=== PATIENT | female | born 1990 | race African-American/Black ===

== ENCOUNTER 2019-04-20 03:12 | Inpatient (IN) | payer OTHER ==
[2019-04-20] MEDS ORDERED: DEXTROSE 5%-LACTATED RINGERS 1,000 ML IV SCH ×2 (04:00→08:00)
[2019-04-20 04:30] LABS: BASO % 0.2 % (0-2.0); HEMATOCRIT 37.7 % (32.4-45.2); HEMOGLOBIN 12.4 GM/dL (10.7-15.3); LYMPH % 20.1 % (8-40); MCH 29.4 pg (25.7-33.7); MEAN CELL VOLUME 89.2 fl (80-96); MEAN PLT VOLUME 9.2 fl (7.5-11.1); MONO % 8.1 % (3.8-10.2); NEUT % 70.6 % (42.8-82.8); RBC 4.22 M/mm3 (3.60-5.2)
[2019-04-20 04:45] LABS: INR 0.92 (0.83-1.09); PROTHROMBIN TIME (PATIENT) 10.9 SEC (9.7-13.0)
[2019-04-20 04:47] LABS: ACTIVATED PTT 32.3 SECONDS (25.2-36.5)
[2019-04-20 04:52] VITALS: BMI 30.9
[2019-04-20 05:05] LABS: BLOOD UREA NITROGEN 6.7 mg/dL (7-18); CALCIUM 8.5 mg/dL (8.5-10.1); CREATININE 0.6 mg/dL (0.55-1.3); POTASSIUM 3.7 mmol/L (3.5-5.1)
[2019-04-20] MEDS ORDERED: FENTANYL/BUPIVACAINE/NS/PF - PCEA - 50 ML DISP.SYRIN EP ONE (06:02)
[2019-04-20] MEDS ORDERED: BUPIVACAINE HCL/PF 0.25% (2.5MG/ML) 10 ML VIAL ONE (06:04)
[2019-04-20] MEDS ORDERED: NALOXONE HCL 0.4 MG/ML VIAL IVPUSH PRN (06:08)
[2019-04-20] MEDS ORDERED: FENTANYL/BUPIVACAINE/NS/PF - PCEA - 50 ML DISP.SYRIN EP SCH (06:15)
[2019-04-20 06:41] LABS: ANISOCYTOSIS 0; HELMET CELLS 0; HOWELL-JOLLY BODIES 0; MACROCYTOSIS 0; OVALOCYTE 0; PLATELET ESTIMATE DECREASED; ROULEAU 0; SICKELED CELLS 0; TARGET CELLS 0; TEAR DROP CELLS 0; TOXIC GRANULATION 0
[2019-04-20 06:44] LABS: PLATELET COUNT 159 K/MM3 (134-434)
[2019-04-20] MEDS ORDERED: ELECTROLYTE-148 SOLN 1,000 ML IV SCH ×2 (07:30→08:00)
--- NOTE | 2019-04-20 08:04 | HP ---
Past Medical History - Admission Chief Complaint: Labor pain History of Present Illness: 28 yo @ 40 weeks gestation, EDC 04/16/19 admitted for labor pain. Upon admission she was 5cm dilated. History Source: Patient Limitations to Obtaining History: No Limitations - Past Medical History ...: 2 ...Para: 0 ...Term: 0 ...: 0 ...Spon : 0 ...Induced : 1 ...Multiple Gestation: 0 ...LMP: 07/10/19 ... Weeks Gestation by Dates: 40.4 ...EDC by Dates: 04/16/19 ...EDC by Sono: 04/26/19 Heme/Onc: Yes: Anemia - Past Surgical History Past Surgical History: Yes: None Hx Myomectomy: No Hx Transabdominal Cerclage: No - Smoking History Smoking history: Never smoked Aproximately how many cigarettes per day: 0 - Alcohol/Substance Use Hx Alcohol Use: No History of Substance Use: reports: None - Social History ADL: Independent History of Recent Travel: No Home Medications - Allergies Allergies/Adverse Reactions: Allergies Allergy/AdvReac Type Severity Reaction Status Date / Time No Known Allergies Allergy Verified 06/15/15 19:17 - Home Medications Home Medications: Ambulatory Orders NK [No Known Home Medication] 05/23/15 Commode 06/17/15 Family Disease History - Family Disease History Family History: Unremarkable Review of Systems - Review of Systems Constitutional: reports: No Symptoms Eyes: reports: No Symptoms HENT: reports: No Symptoms Neck: reports: No Symptoms Cardiovascular: reports: No Symptoms Respiratory: reports: No Symptoms Gastrointestinal: reports: No Symptoms Genitourinary: reports: No Symptoms Breasts: reports: No Symptoms Reported Musculoskeletal: reports: No Symptoms Integumentary: reports: No Symptoms Neurological: reports: No Symptoms Endocrine: reports: No Symptoms Hematology/Lymphatic: reports: No Symptoms Psychiatric: reports: No Symptoms Pain Intensity: 7 Physical Exam - Maternity Vital Signs: Vital Signs Temperature 98.6 F 04/20/19 06:00 Pulse Rate 66 04/20/19 07:45 Respiratory Rate 18 04/20/19 07:45 Blood Pressure 112/56 L 04/20/19 07:45 O2 Sat by Pulse Oximetry (%) 98 04/20/19 07:45 Constitutional: Yes: Well Nourished Eyes: Yes: Conjunctiva Clear HENT: Yes: Atraumatic Neck: Yes: Supple Cardiovascular: Yes: Regular Rate and Rhythm Lungs: Clear to auscultation - Abdominal Exam/OB Number of Fetuses: Single Presentation: Vertex - Vaginal Exam/OB Vaginal Bleediing: No - Physical Exam ...Motor Strength: WNL Psychiatric: Yes: Alert, Oriented - Labs Lab Results: CBC, BMP 04/20/19 03:55 04/20/19 03:55 Problem List - Problems (1) 40 weeks gestation of Code(s): Z3A.40 - 40 WEEKS GESTATION OF Assessment/Plan Active labor at term Admit to L&D Analgesia as needed Anticipate
[2019-04-20] MEDS ORDERED: OXYTOCIN 20 UNITS in 0.9% NS 20 UNIT/1,000 ML INFUS.BAG IV ONE (08:12)
[2019-04-20] MEDS ORDERED: LIDOCAINE HCL 1% PRESERVATIVE FREE - 30ML VIAL ONE (08:13)
[2019-04-20] MEDS ORDERED: BENZOCAINE 28 GM HEMORRHOIDAL OINTMENT TP PRN (08:54)
[2019-04-20] MEDS ORDERED: BISACODYL 10 MG SUPP.RECT RC PRN (08:54)
[2019-04-20] MEDS ORDERED: METHYLERGONOVINE MALEATE 0.2 MG/1 ML AMP IM PRN (08:54)
[2019-04-20] MEDS ORDERED: WITCH HAZEL 50% (TUCKS) 40 PAD/JAR PAD TP PRN (08:54)
[2019-04-20] MEDS ORDERED: BENZOCAINE 20% 57 GM BOTTLE TP PRN (08:54)
--- NOTE | 2019-04-20 08:59 | PN ---
Delivery - Delivery Vaginal Delivery: Spontaneous Type of Anesthesia: Epidural Episiotomy/Laceration: None EBL (cc): 300 Delivery, Single - Feeding Plan Initial Plan: Elected not to breastfeed exclusively throughout hospitalization Remarks - Remarks Remarks: Normal spontaneous vaginal delivery of a live infant over intact perineum. Nose / Oropharynx suctioned @ perineum. Nuchal cord x 1 clamped and cut. Baby handed to nurse. Placenta expelled spontaneously intact. Mother in stable condition.
[2019-04-20] MEDS ORDERED: OXYTOCIN 20 UNITS in 0.9% NS 20 UNIT/1,000 ML INFUS.BAG IV SCH (09:00)
[2019-04-20] MEDS ORDERED: TUBERCULIN PPD 5 TU/0.1ML SYRINGE (IN PATIENT USE ONLY) ID ONE (09:00)
[2019-04-20] MEDS: PRENATAL VITAMINS W/ FOLIC ACID TABLET (FP) PO SCH (10:21)
[2019-04-20] MEDS: FERROUS SO4 325 MG TABLET (FP) PO SCH (18:16)
[2019-04-20] MEDS: ACETAMINOPHEN 325 MG TABLET (FP) PO PRN (19:35)
[2019-04-20] MEDS: IBUPROFEN 600 MG TABLET (FP) PO PRN (19:35)
[2019-04-21] MEDS: IBUPROFEN 600 MG TABLET (FP) PO PRN (02:11)
[2019-04-21] MEDS: ACETAMINOPHEN 325 MG TABLET (FP) PO PRN (02:12)
[2019-04-21 06:27] LABS: BASO % 0.2 % (0-2.0); HEMATOCRIT 37.3 % (32.4-45.2); HEMOGLOBIN 12.5 GM/dL (10.7-15.3); LYMPH % 16.8 % (8-40); MCH 29.4 pg (25.7-33.7); MCHC 33.5 g/dl (32.0-36.0); MEAN CELL VOLUME 87.8 fl (80-96); MEAN PLT VOLUME 9.4 fl (7.5-11.1); MONO % 9.2 % (3.8-10.2); NEUT % 72.8 % (42.8-82.8); RBC 4.25 M/mm3 (3.60-5.2); RDW 17.5 % (11.6-15.6); WHITE BLOOD COUNT 13.6 K/mm3 (4.0-10.0)
--- NOTE | 2019-04-21 06:35 | PN ---
Post Progress Note - Subjective Subjective: 28 yo Para 1, status post vaginal delivery, seen and evaluated. Doing well. Post Day: 1 Type of Delivery: Vital Signs: Vital Signs Temperature 98.2 F 04/21/19 06:00 Pulse Rate 60 04/21/19 06:00 Respiratory Rate 20 04/21/19 06:00 Blood Pressure 105/58 L 04/21/19 06:00 O2 Sat by Pulse Oximetry (%) 98 04/20/19 07:45 Breast Exam: Yes: Soft Uterus: Yes: Fundus Firm Abdomen/GI: Yes: Abdomen soft, Tolerating PO Lochia: Yes: Rubra Lochia, amount: Moderate Extremities: Yes: Calves non-tender Perineum: Yes: Intact Activity: Ambulating - Labs Labs: CBC WBC 9.0 K/mm3 (4.0-10.0) 04/20/19 03:55 RBC 4.22 M/mm3 (3.60-5.2) 04/20/19 03:55 Hgb 12.4 GM/dL (10.7-15.3) 04/20/19 03:55 Hct 37.7 % (32.4-45.2) D 04/20/19 03:55 MCV 89.2 fl (80-96) 04/20/19 03:55 MCH 29.4 pg (25.7-33.7) D 04/20/19 03:55 MCHC 33.0 g/dl (32.0-36.0) 04/20/19 03:55 RDW 17.0 % (11.6-15.6) H 04/20/19 03:55 Plt Count 159 K/MM3 (134-434) D 04/20/19 03:55 MPV 9.2 fl (7.5-11.1) D 04/20/19 03:55 Absolute Neuts (auto) 6.4 K/mm3 (1.5-8.0) 04/20/19 03:55 Neutrophils % 70.6 % (42.8-82.8) 04/20/19 03:55 Neutrophils % (Manual) 64.9 % (42.8-82.8) 04/20/19 03:55 Band Neutrophils % 4.5 % 04/20/19 03:55 Lymphocytes % 20.1 % (8-40) D 04/20/19 03:55 Lymphocytes % (Manual) 27.0 % (8-40) 04/20/19 03:55 Monocytes % 8.1 % (3.8-10.2) 04/20/19 03:55 Monocytes % (Manual) 0 % (3.8-10.2) L 04/20/19 03:55 Eosinophils % 1.0 % (0-4.5) D 04/20/19 03:55 Eosinophils % (Manual) 0.9 % (0-4.5) 04/20/19 03:55 Basophils % 0.2 % (0-2.0) 04/20/19 03:55 Basophils % (Manual) 0.0 % (0-2.0) 04/20/19 03:55 Myelocytes % (Man) 2 % (0-2) 04/20/19 03:55 Promyelocytes % (Man) 0 % (0-2) 04/20/19 03:55 Blast Cells % (Manual) 0 % (0-0) 04/20/19 03:55 Nucleated RBC % 0 % (0-0) 04/20/19 03:55 Metamyelocytes 0 % (0-2) 04/20/19 03:55 Hypochromia 0 04/20/19 03:55 Toxic Granulation 0 04/20/19 03:55 Dohle Bodies 0 04/20/19 03:55 Platelet Estimate Decreased 04/20/19 03:55 Polychromasia 0 04/20/19 03:55 Poikilocytosis 0 04/20/19 03:55 Basophilic Stippling 0 04/20/19 03:55 Anisocytosis 0 04/20/19 03:55 Microcytosis 0 04/20/19 03:55 Macrocytosis 0 04/20/19 03:55 Spherocytes 0 04/20/19 03:55 Sickle Cells 0 04/20/19 03:55 Target Cells 0 04/20/19 03:55 Tear Drop Cells 0 04/20/19 03:55 Ovalocytes 0 04/20/19 03:55 Stomatocytes 0 04/20/19 03:55 Helmet Cells 0 04/20/19 03:55 [place] Bodies 0 04/20/19 03:55 [place] Rings 0 04/20/19 03:55 [place] Cells 0 04/20/19 03:55 Acanthocytes (Spur) 0 04/20/19 03:55 Rouleaux 0 04/20/19 03:55 Fragmented RBCs 0 04/20/19 03:55 Schistocytes 0 04/20/19 03:55 Problem List - Problems (1) 40 weeks gestation of Code(s): Z3A.40 - 40 WEEKS GESTATION OF (2) Status post normal vaginal delivery Code(s): [id number] - Assessment/Plan Status post vaginal delivery Stable Continue routine care
[2019-04-21] MEDS: PRENATAL VITAMINS W/ FOLIC ACID TABLET (FP) PO SCH (09:34)
[2019-04-21] MEDS: FERROUS SO4 325 MG TABLET (FP) PO SCH ×2 (09:34→18:28)
[2019-04-21 09:43] LABS: PLATELET COUNT 127 K/MM3 (134-434)
[2019-04-21] MEDS ORDERED: SENNOSIDES/DOCUSATE COMBO (SENNA PLUS) TABLET (UD) PO PRN (22:00)
--- NOTE | 2019-04-22 06:27 | DS ---
Physical Exam-HOUSING PROPERTY MANAGER Vital Signs: Vital Signs Temperature 97.9 F 04/21/19 20:30 Pulse Rate 69 04/21/19 20:30 Respiratory Rate 20 04/21/19 20:30 Blood Pressure 118/68 04/21/19 20:30 O2 Sat by Pulse Oximetry (%) 98 04/20/19 07:45 Constitutional: Yes: Well Nourished, No Distress Respiratory: Yes: WNL, Regular Gastrointestinal: Yes: WNL Pelvis: Yes: WNL ....Post : Yes: Uterus firm, Uterus non-tender Breast(s): Yes: WNL Musculoskeletal: Yes: WNL Extremities: Yes: WNL Edema: No Labs: CBC, BMP 04/21/19 05:45 04/20/19 03:55 Delivery - Delivery Vaginal Delivery: Spontaneous Type of Anesthesia: Epidural Episiotomy/Laceration: None EBL (cc): 300 Delivery, Single - Stages of Labor Date 1st Stage Initiatied: 04/20/19 Time 1st Stage Initiated: 02:00 Date 2nd Stage Initiated: 04/20/19 Time 2nd Stage Initiated: 08:15 Date of Delivery: 04/20/19 Time of Delivery: 08:44 Time Placenta Delivered: 08:48 - Condition of Infant Efficiency Engineer/Accreditation Coordinator Present: No Gender: Male Total Hours ROM (Hrs/Mins): 6H50M - 1 Minute Total Score: 9 5 Minutes Total Score: 9 - [place] Feeding Plan Initial Plan: Elected not to breastfeed exclusively throughout hospitalization Discharge Summary Reason For Visit: LABOR Current Active Problems 40 weeks gestation of (Acute) Status post normal vaginal delivery (Acute) Procedures: Principal: Normal vaginal delivery Condition: Good - Instructions Diet, Activity, Other Instructions: Physical activity Resume your normal everyday activity as tolerated no heavy lifting or exercise until seen by your surgeon. You may walk unlimited aaron of and climb stairs. You may resume driving the car when you feel safe and comfortable behind the wheel. No sexual activity as instructed. Wound care If you have a bandage, leave it on, and keep dry for 48-72 hours. After that time discard the outer bandage. If they are tapes on the skin under the out of bandage leave them in place. They will peel off in the next 7 to 10 days. Do Not Peel them off. You may shower the day after surgery. If there are tapes present on the skin, you may shower over them. Diet There are no dietary restrictions. Eat healthy, high-fiber foods. Drink 6 to 8 glasses of liquid each day. This will assist in keeping your bowels are regular. Pain management You may take Tylenol or acetaminophen or Ibuprofen (for example, Motrin, Advil etc.) from my pain prescription medication is ordered should be taken as prescribed for moderate to severe pain. Call MD for any of the following: Severe pain not relieved by medication Fever of 101 or higher Excessive bleeding or drainage on dressing Inability to urinate Disposition: HOME - Home Medications Comprehensive Discharge Medication List: Ambulatory Orders NK [No Known Home Medication] 05/23/15 Commode 06/17/15
[2019-04-22 09:31] VITALS: BP 124/59; PULSE 67; TEMP 98.5
[2019-04-22] MEDS: FERROUS SO4 325 MG TABLET (FP) PO SCH (10:50)
[2019-04-22] MEDS: PRENATAL VITAMINS W/ FOLIC ACID TABLET (FP) PO SCH (10:50)
== END 2019-04-22 15:10 | disposition home or self-care (01) | DRG 560 ==
LOC: JLDR 03:12 → J3W 10:08
PROVIDERS: ADMIT Obstetrics & Gynecology; ATTEND Obstetrics & Gynecology
PROC: 10E0XZZ Delivery of Products of Conception, External Approach (ICD-10-PCS; principal; 2019-04-20)
PROC: 3E0R3BZ Introduction of Anesthetic Agent into Spinal Canal, Percutaneous Approach (ICD-10-PCS; 2019-04-20)
DX: O48.0 Post-term pregnancy (principal); O69.81X0 Labor and delivery complicated by cord around neck, without compression, not applicable or unspecified; Z3A.40 40 weeks gestation of pregnancy; Z37.0 Single live birth
CPT/HCPCS: 36415; 59409; 80048; 85025; 85610; 85730; 86593; 86850; 86900; 86901; 87389